=== PATIENT | female | born 1990 | race Two or more races ===

== ENCOUNTER 2021-01-19 02:48 | Emergency (ER) | payer BC, OTHER ==
[~2021-01-19] VITALS: Ht 157.5 cm; Wt 56.7 kg
[2021-01-19 02:50] VITALS: BP 120/82
--- NOTE | 2021-01-19 02:50 | NUR ---
TO ER BED 12 BIBEMS C/O ETOH. FOUND PASSED OUT IN BACK OF [facility]. RECEIVED PT AAOX4 DENIES DRUG USE. PT DENIES SI/HI. PT AMBULATORY WITH STEADY GAIT NOTED. PT AAOX4 NO ACUTE DISTRESS NOTED, RESP EVEN AND UNALBORED. PT CALM AND COOPERATIVE AT THIS TIME.
--- NOTE | 2021-01-19 03:23 | NUR ---
PT REQUESTING TO BE DISCHARGE. PT REMAINS AAOX4, NO ACUTE DISTRESS NOTED, RESP EVEN AND UNLABORED. PT DENIES SI/HI. PT CALLING [facility] AT THIS TIME AND REFUSE TO WAIT FOR D/C INSTRUCTION. PT LEFT WITHOUT ACI.
== END 2021-01-19 03:30 | disposition home or self-care (01) ==
LOC: ER 02:50
DX: F10.129 Alcohol abuse with intoxication, unspecified (principal); Y90.9 Presence of alcohol in blood, level not specified